=== PATIENT | female | born 1955 | race Caucasian/White ===

== ENCOUNTER → 2018-03-23 | Outpatient (CLI) | payer OTHER ==
[~2018-03-23] MED LIST: IOHEXOL 100 ML; METOPROLOL 5 MG INJ; NITROGLYCERIN AEROSOL (4.9 GM); SOD CHLORIDE 0.9% 100 ML
[2018-03-23] MEDS: METOPROLOL 100 MG TAB (13:15)
[2018-03-23] MEDS: METOPROLOL 5 MG INJ ×2 (14:40→14:45)
== END | disposition home or self-care (01) ==
LOC: C/S 12:03
DX: R94.39 Abnormal result of other cardiovascular function study (principal); R06.02 Shortness of breath
CPT/HCPCS: 75571; 75574